=== PATIENT | female | born 1975 | race Caucasian/White ===

== ENCOUNTER → 2016-11-13 | Outpatient (CLI) | payer OTHER ==
--- NOTE | 2016-11-13 12:12 | REP ---
Clinical: Trauma. Crush injury first digit. Technique: AP, lateral, bilateral oblique views. Findings: The osseous structures and joint spaces are intact and normal. There is no evidence for acute fracture or dislocation. Surrounding soft tissues are unremarkable. No subcutaneous emphysema or radiodense foreign body. Impression: No acute fracture or dislocation. Signed by Dustin Lynch MD 11/13/2016 12:03 P
== END ==
LOC: M WUC 11:53
PROVIDERS: ATTEND Physician Assistant
DX: S67.01XA Crushing injury of right thumb, initial encounter (principal); W23.1XXA Caught, crushed, jammed, or pinched between stationary objects, initial encounter; Y92.89 Other specified places as the place of occurrence of the external cause; Y93.89 Activity, other specified; Y99.8 Other external cause status